=== PATIENT | female | born 1980 | race Two or more races ===

== ENCOUNTER 2018-01-04 07:48 | Emergency (ER) | payer MEDICAID ==
[~2018-01-04] VITALS: Ht 162.6 cm; Wt 99.8 kg
[2018-01-04 07:59] VITALS: BP 126/83
[2018-01-04] MEDS ORDERED: cefTRIAXone SOD 1,000 MG VL IM ONE (09:30)
[2018-01-04] MEDS ORDERED: LIDOCAINE 1% (LOCAL ANESTH.) PF 5ml SDV ONE (09:46)
== END 2018-01-04 09:49 | disposition home or self-care (01) ==
LOC: ER 07:48
DX: J02.0 Streptococcal pharyngitis (principal)
CPT/HCPCS: 99283; J0696

== ENCOUNTER 2018-07-21 09:46 | Emergency (ER) | payer MEDICAID ==
[~2018-07-21] VITALS: Ht 162.6 cm; Wt 104.3 kg
[2018-07-21 10:52] VITALS: BP 145/91
[2018-07-21] MEDS ORDERED: IBUPROFEN 800 MG TAB PO ONE (12:00)
== END 2018-07-21 12:03 | disposition home or self-care (01) ==
LOC: ER 09:46
DX: S00.83XA Contusion of other part of head, initial encounter (principal); Y04.0XXA Assault by unarmed brawl or fight, initial encounter; Y93.89 Activity, other specified; Y92.89 Other specified places as the place of occurrence of the external cause; Y99.8 Other external cause status
CPT/HCPCS: 70486; 81025

== ENCOUNTER 2019-12-26 10:44 | Emergency (ER) | payer MEDICAID ==
[~2019-12-26] VITALS: Ht 162.6 cm; Wt 104.3 kg
[2019-12-26 10:54] VITALS: BP 140/87
== END 2019-12-26 11:27 | disposition home or self-care (01) ==
LOC: ER 10:44
DX: H00.014 Hordeolum externum left upper eyelid (principal); H00.022 Hordeolum internum right lower eyelid; Z90.49 Acquired absence of other specified parts of digestive tract

== ENCOUNTER 2022-01-26 21:21 | Emergency (ER) | payer MEDICAID ==
[~2022-01-26] VITALS: Ht 160 cm; Wt 104.3 kg
[2022-01-26 21:22] VITALS: BP 154/94
== END 2022-01-26 22:32 | disposition left against medical advice (07) ==
LOC: ER 21:21
DX: H57.12 Ocular pain, left eye (principal); Z53.21 Procedure and treatment not carried out due to patient leaving prior to being seen by health care provider